=== PATIENT | male | born 1930 | race Caucasian/White ===

== ENCOUNTER → 2017-01-12 | Outpatient (CLI) | payer MEDICARE ==
[~2017-01-12] MED LIST: ASPIRIN81 M1 PO; DIABETA5 MG PO; LISINOPRIL20 MG PO; LOPRESSOR50 MG PO; NORVASC10 MG PO; ZOCOR40 MG PO
[2017-01-12 11:17] LABS: HEMATOCRIT 30.8 % (42.0-52.0); HEMOGLOBIN 9.3 g/dl (14.0-18.0); MEAN CELL VOLUME 82.8 fl (80.0-94.0); MEAN CORPUSCULAR HGB CONC 30.2 g/dl (33.0-37.0); MEAN PLATELET VOLUME 9.5 fl (9.6-12.3); RED BLOOD COUNT 3.72 10*6/uL (4.50-5.90); RED CELL DISTRI WIDTH 16.7 % (0-14.5); WHITE BLOOD COUNT 10.6 10*3/uL (4.8-10.8)
[2017-01-12 11:53] LABS: ALBUMIN 3.2 gm/dl (3.1-4.5); CREATININE 1.52 mg/dL (0.70-1.30); POTASSIUM 4.5 mmol/L (3.5-5.1); TOTAL PROTEIN 8.6 gm/dL (6.4-8.2)
== END | disposition home or self-care (01) ==
LOC: LAB 10:44
PROVIDERS: Internal Medicine
DX: E13.9 Other specified diabetes mellitus without complications (principal)

== ENCOUNTER 2017-01-15 07:11 | Emergency (ER) | payer MEDICARE ==
[~2017-01-15] VITALS: Ht 167.6 cm; Wt 79.8 kg
[2017-01-15 08:02] LABS: HEMATOCRIT 30.2 % (42.0-52.0); HEMOGLOBIN 8.8 g/dl (14.0-18.0); MEAN CORPUSCULAR HGB 25.4 pg (27.0-31.0); MEAN CORPUSCULAR HGB CONC 29.1 g/dl (33.0-37.0); MEAN PLATELET VOLUME 9.9 fl (9.6-12.3); PLATELET COUNT AUTOMATED 461 10*3/uL (130-400); RED BLOOD COUNT 3.47 10*6/uL (4.50-5.90); RED CELL DISTRI WIDTH 17.2 % (0-14.5); WHITE BLOOD COUNT 31.7 10*3/uL (4.8-10.8)
[2017-01-15 08:12] LABS: ACT PARTIAL THROMBO TIME 27.5 SECONDS (20.8-31.5); INTERNATIONAL NORM RATIO 1.2 (2.0-3.5)
[2017-01-15 08:19] LABS: ALBUMIN 2.8 gm/dl (3.1-4.5); ALKALINE PHOSPHATASE 90 U/L (45-117); BUN 41 mg/dl (7-24); CHLORIDE 94 mmol/L (98-107); CREATININE 3.26 mg/dL (0.70-1.30); POTASSIUM 5.8 mmol/L (3.5-5.1); SGOT/AST 19 IU/L (3-35); SGPT/ALT 19 U/L (12-78); SODIUM 134 mmol/L (136-145); TOTAL PROTEIN 7.6 gm/dL (6.4-8.2)
[2017-01-15 08:22] LABS: TROPONIN I < 0.015 ng/ml (<0.045)
[2017-01-15 08:31] LABS: TOTAL CELLS COUNTED 100 #CELLS
[2017-01-15 08:32] LABS: BURR CELLS FEW; PLATELET SUFFICIENCY HIGH (NORMAL); POLYCHROMASIA SLIGHT
[2017-01-15 09:00] LABS: BILIRUBIN NEGATIVE (NEGATIVE); BLOOD 1+ (NEGATIVE); CLARITY CLOUDY (CLEAR); COLOR YELLOW (YELLOW); GLUCOSE NEGATIVE (NEGATIVE); KETONE TRACE (NEGATIVE); LEUKO ESTERASE 3+ (NEGATIVE); NITRITE NEGATIVE (NEGATIVE)
[2017-01-15 09:17] LABS: WBC TNTC wbc/hpf (0-5)
[2017-01-15 10:59] VITALS: BP 109/41
== END 2017-01-15 11:36 | disposition short-term general hospital (02) ==
LOC: ED 07:11
PROVIDERS: Emergency Medicine
DX: A41.9 Sepsis, unspecified organism (principal); R65.20 Severe sepsis without septic shock; N17.9 Acute kidney failure, unspecified; N39.0 Urinary tract infection, site not specified; E11.9 Type 2 diabetes mellitus without complications; Z79.899 Other long term (current) drug therapy; Z79.82 Long term (current) use of aspirin; Z88.8 Allergy status to other drugs, medicaments and biological substances